=== PATIENT | female | born 1950 | race Two or more races ===

== ENCOUNTER 2022-09-10 15:59 | Inpatient (IN) | payer OTHER ==
[~2022-09-10] VITALS: Ht 170.2 cm; Wt 84.0 kg
[2022-09-10] MEDS ORDERED: ONDANSETRON HCL 4 MG/2 ML VIAL IV PRN (17:45)
[2022-09-10] MEDS ORDERED: DEXTROSE (50%) 50ML SYRG IV PRN (17:45)
[2022-09-10] MEDS: SODIUM CHLORIDE 0.9% 1,000 ML IV SCH (17:45)
[2022-09-10] MEDS ORDERED: KETOROLAC TROMETH 30 MG/ML 1ML VIAL IV PRN (17:45)
[2022-09-10] MEDS ORDERED: ZOLP5TAB5 PO (18:47)
[2022-09-10] MEDS ORDERED: SERT-206 PO (18:47)
[2022-09-10] MEDS ORDERED: ESTR1TAB5 PO (18:47)
[2022-09-10] MEDS ORDERED: QUET150T16 PO (18:47)
[2022-09-10 18:55] LABS: Basophils # (auto) 0.1 10 ^3/uL (0-0.2); Basophils % (auto) 0.5 % (0.0-2.0); Eosinophils # (auto) 0 10 ^3/uL (0-0.8); Hematocrit 39.1 % (36.0-46.0); Hemoglobin 13.1 g/dL (12.2-16.2); Lymphocytes # (auto) 0.4 10 ^3/uL (0.4-5.4); Lymphocytes % (auto) 2.2 % (10.0-50.0); Mean Corpuscular Hemoglobin 29.3 pg (28.0-32.0); Mean Corpuscular Hgb Conc. 33.5 g/dL (32.0-36.0); Mean Corpuscular Volume 87.5 fL (80.0-100.0); Monocytes # (auto) 1.1 10 ^3/uL (0-1.3); Monocytes % (auto) 6.2 % (0.0-12.0); Neutrophils % (auto) 91.1 % (37.0-80.0); Red Blood Cells 4.46 10^6/uL (4.0-5.20); Red Cell Distribution Width 14.3 % (11.8-14.3); White Blood Cell 17.6 10^3/uL (4.4-10.8)
[2022-09-10 19:26] LABS: INR 1.03 (0.9-1.15)
[2022-09-10 19:45] LABS: BUN/Creatinine Ratio 15.9 (10.0-20.0); Calcium 8.3 mg/dL (8.5-10.1); Potassium 4.1 mmol/L (3.5-5.1)
[2022-09-10 20:00] VITALS: BP 105/61
[2022-09-10 22:00] VITALS: BP 105/61
[2022-09-10] MEDS ORDERED: InsuLIN REG 1unit/0.01ml Soln (100units/ml) SC SCH ×2 (22:00)
[2022-09-10] MEDS ORDERED: ACCU-CHEK COMFORT CURVE STRIP VI SCH (22:00)
[2022-09-11] VITALS (11 sets, daily range): BP systolic 103–123; BP diastolic 51–61
[2022-09-11] MEDS: SODIUM CHLORIDE 0.9% 1,000 ML IV SCH ×3 (03:45→23:45)
[2022-09-11 06:05] LABS: Urine Bacteria NONE SEEN /hpf (None Seen); Urine Blood 1+ /uL (Negative); Urine Mucus FEW (None Seen); Urine Specific Gravity 1.015 (1.001-1.035); Urine WBC 1027 /hpf (0 - 5); Urine WBC Clumps PRESENT /hpf (None Seen)
[2022-09-11 06:26] LABS: Basophils # (auto) 0 10 ^3/uL (0-0.2); Basophils % (auto) 0.2 % (0.0-2.0); Eosinophils # (auto) 0.1 10 ^3/uL (0-0.8); Eosinophils % (auto) 0.3 % (0.0-7.0); Hematocrit 35.2 % (36.0-46.0); Hemoglobin 11.7 g/dL (12.2-16.2); Lymphocytes # (auto) 1.6 10 ^3/uL (0.4-5.4); Lymphocytes % (auto) 8.5 % (10.0-50.0); Mean Corpuscular Hemoglobin 29.3 pg (28.0-32.0); Mean Corpuscular Hgb Conc. 33.3 g/dL (32.0-36.0); Mean Corpuscular Volume 87.9 fL (80.0-100.0); Monocytes # (auto) 1.7 10 ^3/uL (0-1.3); Monocytes % (auto) 8.9 % (0.0-12.0); Neutrophils # (auto) 15.9 10 ^3/uL (1.6-8.6); Neutrophils % (auto) 82.1 % (37.0-80.0); Red Cell Distribution Width 14.5 % (11.8-14.3); White Blood Cell 19.3 10^3/uL (4.4-10.8)
[2022-09-11 06:39] LABS: INR 1.14 (0.9-1.15); Partial Thromboplastin Time 29.1 sec (24.6-33.4)
[2022-09-11 06:41] LABS: Calcium 8.5 mg/dL (8.5-10.1); Potassium 3.6 mmol/L (3.5-5.1)
[2022-09-11 06:43] LABS: BUN/Creatinine Ratio 17.9 (10.0-20.0)
[2022-09-11] MEDS ORDERED: ACETAMINOPHEN 325 MG TAB PO PRN (08:15)
[2022-09-11] MEDS ORDERED: MIDAZOLAM HCL 2MG/2ML 2ml VIAL (1mg/ml) ONE (08:26)
[2022-09-11] MEDS ORDERED: fentaNYL CITRATE 100 MCG/2 ML VL ONE (08:26)
[2022-09-11] MEDS ORDERED: LIDOCAINE 2%HCL (LOCAL ANESTH.) INJ 20ML MDV ONE (08:26)
[2022-09-11] MEDS ORDERED: IODIXANOL 320MG/ML 100ML BTL IV ONE (08:35)
[2022-09-11] MEDS: cefTRIAXone 1GM/50ML D5W 50 ML IV SCH (09:00)
[2022-09-11] MEDS ORDERED: cefTRIAXone 1GM/50ML D5W 50 ML IV ONE (09:08)
[2022-09-12 05:00] VITALS: BP 97/51
[2022-09-12 08:00] VITALS: BP 105/61
[2022-09-12] MEDS: SODIUM CHLORIDE 0.9% 1,000 ML IV SCH (09:45)
[2022-09-12 09:56] VITALS: BP 106/52
[2022-09-12] MEDS: cefTRIAXone 1GM/50ML D5W 50 ML IV SCH (10:31)
[2022-09-12] MEDS ORDERED: CEPH500C PO (12:40)
[2022-09-12] MEDS ORDERED: HYDR-4902 PO (12:40)
[2022-09-12 13:00] VITALS: BP 100/59
[2022-09-12 17:10] VITALS: BP 145/82
== END 2022-09-12 20:12 | disposition home health service (06) | DRG 690 ==
LOC: WEST WING 17:37
PROVIDERS: ADMIT Hospitalist; ATTEND Internal Medicine
PROC: 0T9430Z Drainage of Left Kidney Pelvis with Drainage Device, Percutaneous Approach (ICD-10-PCS; principal; 2022-09-11)
DX: N13.6 Pyonephrosis (principal); F32.A Depression, unspecified; Z20.822 Contact with and (suspected) exposure to COVID-19; F41.9 Anxiety disorder, unspecified; Z87.891 Personal history of nicotine dependence; Z87.442 Personal history of urinary calculi; Z90.710 Acquired absence of both cervix and uterus
CPT/HCPCS: 36415; 74425; 76775; 76942; 80048; 81001; 82962; 85025; 85610; 85730; 87086; 87426; G0378; J0696; J1815; J1885; J2250; J2405; Q9967

== ENCOUNTER 2022-10-22 07:26 | Day surgery (SDC) | payer OTHER ==
[~2022-10-22] VITALS: Ht 170.2 cm; Wt 59.0 kg
[~2022-10-22 07:26] MED LIST: ESTR1TAB5 PO; HYDR-4902 PO; QUET150T16 PO; SERT-206 PO
[2022-10-22] MEDS ORDERED: CIPROFLOXACIN 400MG/200ML 200 ML IV ONE (09:48)
[2022-10-22] MEDS ORDERED: IOHEXOL 300 MG/ML 100ML BOTTLE IJ ONE (09:49)
[2022-10-22] MEDS ORDERED: ROCURONIUM 10MG/ML 10ML VIAL IV ONE (09:57)
[2022-10-22] MEDS ORDERED: ONDANSETRON HCL 4 MG/2 ML VIAL ONE (09:57)
[2022-10-22] MEDS ORDERED: SODIUM CHLORIDE LOCK 20 ML ONE (09:57)
[2022-10-22] MEDS ORDERED: fentaNYL CITRATE 100 MCG/2 ML VL ONE (09:57)
[2022-10-22] MEDS ORDERED: GLYCOPYRROLATE 0.2 MG/ML 1ML VIAL ONE (09:57)
[2022-10-22] MEDS ORDERED: NEOSTIGMINE 1 MG/ML INJ (10mg/10ML VIAL) ONE (09:57)
[2022-10-22] MEDS ORDERED: MEPERIDINE HCL (50 MG/ML) 1 ML VIAL ONE (09:57)
[2022-10-22] MEDS ORDERED: MIDAZOLAM HCL 2MG/2ML 2ml VIAL (1mg/ml) ONE (09:57)
[2022-10-22] MEDS ORDERED: MORPHINE SULFATE INJ 2 MG/ml SYRG IV PRN (10:15)
[2022-10-22] MEDS ORDERED: HYDROmorphone HCL 2 MG/ML VL/or syr IV PRN ×2 (10:15)
[2022-10-22 11:20] VITALS: PULSE 117; RESP 11; TEMP 97.1; O2SAT 98
[2022-10-22 11:50] VITALS: BP 138/74; PULSE 92; RESP 10; O2SAT 98
== END 2022-10-22 12:35 | disposition home or self-care (01) ==
LOC: SUR 07:26
PROVIDERS: ATTEND Urology
DX: N13.2 Hydronephrosis with renal and ureteral calculous obstruction (principal)
CPT/HCPCS: 50389; 52356; 74018; 76000; C1769; C2617; J0744; J2175; J2250; J2405; J3010; J7030; Q9967